=== PATIENT | male | born 1965 | race African-American/Black ===

== ENCOUNTER 2017-06-19 10:36 | Emergency (ER) | payer BC ==
[~2017-06-19] VITALS: Ht 182.9 cm; Wt 127.0 kg
[2017-06-19 15:17] LABS: BASOPHILS % 0.7 % (0.0-2.0); EOSINOPHILS % 1.4 % (0.0-5.0); HEMATOCRIT. 36.9 % (42.0-52.0); HEMOGLOBIN. 12.4 g/dL (14.0-18.0); MEAN CORPUSCULAR HEMOGLOBIN 28.1 pg (28.0-32.0); MEAN CORPUSCULAR VOLUME 83.5 fL (80.0-94.0); MEAN PLATELET VOLUME 7.3 fl (7.4-10.4); MONOCYTES % 9.7 % (2.0-8.0); NEUTROPHILS % 50.2 % (40.0-76.0); PLATELET 221 x1000/uL (130-400); RED BLOOD CELL COUNT 4.42 mill/uL (4.7-6.1); RED CELL DISTRIBUTION WIDTH 14.2 % (11.6-14.6)
[2017-06-19 15:25] LABS: CHLORIDE 107 mEq/L (98-107)
[2017-06-19 15:30] LABS: CARBON DIOXIDE 29 mEq/L (21-32)
[2017-06-19] MEDS ORDERED: KETOROLAC 60MG/2ML VIAL IM ONE ×2 (15:45→19:00)
[2017-06-19] MEDS ORDERED: VANCOMYCIN 1 G PREMIX 200 ML IV SCH (17:30)
[2017-06-19 17:33] LABS: PROTHROMBIN TIME 10.7 sec (9.4-11.6)
[2017-06-19 17:45] LABS: CLARITY URINE CLEAR (CLEAR); COLOR URINE YELLOW (YELLOW); GLUCOSE URINE NEGATIVE (NEGATIVE); KETONES URINE NEGATIVE (NEGATIVE); LEUKOCYTE ESTERASE URINE NEGATIVE (NEGATIVE); NITRITE URINE NEGATIVE (NEGATIVE); OCCULT BLOOD URINE NEGATIVE (NEGATIVE); PROTEIN URINE NEGATIVE (NEGATIVE); SPECIFIC GRAVITY URINE 1.031 (1.005-1.030)
[2017-06-19 19:50] VITALS: BP 132/72
== END 2017-06-19 20:01 | disposition home or self-care (01) ==
LOC: ER 11:09 → CANBEDREQ 06-20 01:16
DX: L03.115 Cellulitis of right lower limb (principal)
CPT/HCPCS: 36415; 80048; 81003; 83605; 85025; 85610; 87040; 87086; 93970; 96365; 96366; 96372; 99285; J1885; J3370; Z7610